=== PATIENT | male | born 1960 | race African-American/Black ===

== ENCOUNTER 2018-01-27 20:21 | Emergency (ER) | payer MEDICAID, MEDICARE ==
[~2018-01-27] VITALS: Ht 172.7 cm; Wt 68.9 kg
[~2018-01-27 20:21] MED LIST: ALPR0.5T PO; VIC
[2018-01-28] MEDS ORDERED: SODIUM CHLORIDE 0.9% 1,000 ML IV ONE (00:23)
[2018-01-28] MEDS ORDERED: ONDANSETRON HCL 4MG/2ML INJ IV STA (00:23)
[2018-01-28] MEDS ORDERED: MORPHINE SULFATE 4 MG/ML CPJ (NOT FOR IM USE) IV STA (00:23)
[2018-01-28] MEDS ORDERED: PANTOPRAZOLE SODIUM 40 MG/VIAL IV ONE (00:30)
[2018-01-28] MEDS ORDERED: MORPHINE SULFATE 2 MG/ML CPJ (NOT FOR IM USE) IV SCH (00:50)
[2018-01-28 00:56] LABS: BASOPHILS % 0.7 % (0.0-2.0); EOSINOPHILS % 1.4 % (0.0-5.0); HEMATOCRIT. 42.8 % (42.0-52.0); HEMOGLOBIN. 14.4 g/dL (14.0-18.0); LYMPHOCYTES % 38.6 % (20.0-50.0); MEAN CORPUSCULAR HEMOGLOBIN 31.2 pg (28.0-32.0); MEAN CORPUSCULAR VOLUME 92.7 fL (80.0-94.0); MEAN PLATELET VOLUME 8.8 fl (7.4-10.4); NEUTROPHILS % 49.3 % (40.0-76.0); PLATELET 218 x1000/uL (130-400); RED BLOOD CELL COUNT 4.61 mill/uL (4.7-6.1); RED CELL DISTRIBUTION WIDTH 14.7 % (11.6-14.6)
[2018-01-28 01:02] LABS: CHLORIDE 108 mEq/L (98-107); INR 1.1; PROTHROMBIN TIME 10.6 sec (9.1-11.1)
[2018-01-28 01:09] LABS: ETHANOL BLOOD < 10 mg/dL
[2018-01-28 01:11] LABS: CLARITY URINE CLEAR (CLEAR); COLOR URINE YELLOW (YELLOW); KETONES URINE TRACE (NEGATIVE); LEUKOCYTE ESTERASE URINE TRACE (NEGATIVE); NITRITE URINE NEGATIVE (NEGATIVE); OCCULT BLOOD URINE NEGATIVE (NEGATIVE); PH URINE 5.5 (4.5-8.0); PROTEIN URINE NEGATIVE (NEGATIVE); SPECIFIC GRAVITY URINE 1.029 (1.005-1.030); UROBILINOGEN URINE 0.2 E.U./dL (0.2-1.0)
[2018-01-28 01:37] LABS: *AMPHETAMINES SCREEN URINE NEGATIVE (NEGATIVE); CANNABINOID URINE SCREEN PRESUMTIVE POSITIVE (NEGATIVE); METHADONE URINE SCREEN NEGATIVE (NEGATIVE); OPIATES URINE SCREEN NEGATIVE (NEGATIVE); PHENCYCLIDINE URINE SCREEN NEGATIVE (NEGATIVE)
[2018-01-28 01:38] LABS: *BARBITURATES SCREEN URINE NEGATIVE (NEGATIVE); *BENZODIAZEPINES SCREEN URINE NEGATIVE (NEGATIVE); *COCAINE SCREEN URINE PRESUMTIVE POSITIVE (NEGATIVE)
[2018-01-28] MEDS ORDERED: IOHEXOL-300 100 ML BOTTLE ONE (03:29)
[2018-01-28 03:58] VITALS: BP 117/76
== END 2018-01-28 04:04 | disposition home or self-care (01) ==
LOC: ER 20:21
DX: R10.32 Left lower quadrant pain (principal); R10.12 Left upper quadrant pain; I10 Essential (primary) hypertension; K21.9 Gastro-esophageal reflux disease without esophagitis; R11.10 Vomiting, unspecified
CPT/HCPCS: 36415; 74177; 80053; 80305; 81003; 83690; 85025; 85610; 96361; 96374; 96375; 99284; C9113; G0482; J2270; J2405; J7030; Q9967

== ENCOUNTER 2019-01-17 07:12 | Emergency (ER) | payer MEDICARE ==
[~2019-01-17] VITALS: Ht 172.7 cm; Wt 73.0 kg
[2019-01-17] MEDS ORDERED: ACETAMINOPHEN WITH CODEINE 300/30MG TABLET PO STA (08:06)
[2019-01-17] MEDS ORDERED: ASPIRIN 81MG TABLET PO ONE (08:15)
[2019-01-17] MEDS ORDERED: NITROGLYCERIN 0.4MG TABLET SL SL PRN (08:15)
[2019-01-17 08:19] LABS: BASOPHILS % 0.4 % (0.0-2.0); EOSINOPHILS % 1.3 % (0.0-5.0); HEMATOCRIT. 42.6 % (42.0-52.0); HEMOGLOBIN. 14.4 g/dL (14.0-18.0); LYMPHOCYTES % 24.6 % (20.0-50.0); MEAN CORPUSCULAR HEMOGLOBIN 31.4 pg (28.0-32.0); MEAN CORPUSCULAR VOLUME 92.8 fL (80.0-94.0); MEAN PLATELET VOLUME 8.5 fl (7.4-10.4); MONOCYTES % 7.8 % (2.0-8.0); NEUTROPHILS % 65.9 % (40.0-76.0); PLATELET 180 x1000/uL (130-400); RED BLOOD CELL COUNT 4.59 mill/uL (4.7-6.1); RED CELL DISTRIBUTION WIDTH 14.2 % (11.6-14.6)
[2019-01-17 08:26] LABS: CHLORIDE 108 mEq/L (98-107)
[2019-01-17 12:55] VITALS: BP 131/80
== END 2019-01-17 13:29 | disposition home or self-care (01) ==
LOC: ER 07:12 → SUPCPDRO 11:47 → ER 13:29 → CANBEDREQ 14:40
DX: I20.0 Unstable angina (principal); E86.0 Dehydration; I10 Essential (primary) hypertension; F41.9 Anxiety disorder, unspecified; F10.10 Alcohol abuse, uncomplicated; Y90.9 Presence of alcohol in blood, level not specified; F17.210 Nicotine dependence, cigarettes, uncomplicated; Z95.0 Presence of cardiac pacemaker; Z87.828 Personal history of other (healed) physical injury and trauma; Z71.6 Tobacco abuse counseling
CPT/HCPCS: 36415; 71045; 80053; 83880; 84484; 85025; 93005; 99284; 99406; Z7610

== ENCOUNTER 2020-03-14 12:27 | Emergency (ER) | payer MEDICAID, MEDICARE ==
[~2020-03-14] VITALS: Ht 172.7 cm; Wt 70.0 kg
[2020-03-14 12:30] VITALS: BP 124/89
[2020-03-14] MEDS ORDERED: ACETAMINOPHEN 500MG TABLET PO ONE (13:15)
[2020-03-14 14:23] LABS: BASOPHILS % 0.5 % (0.0-2.0); EOSINOPHILS % 1.8 % (0.0-5.0); HEMATOCRIT. 37.8 % (42.0-52.0); HEMOGLOBIN. 12.6 g/dL (14.0-18.0); LYMPHOCYTES % 24.2 % (20.0-50.0); MEAN CORPUSCULAR VOLUME 93.2 fL (80.0-94.0); MEAN PLATELET VOLUME 8.2 fl (7.4-10.4); MONOCYTES % 7.3 % (2.0-8.0); NEUTROPHILS % 66.2 % (40.0-76.0); PLATELET 197 x1000/uL (130-400); RED BLOOD CELL COUNT 4.05 mill/uL (4.7-6.1); RED CELL DISTRIBUTION WIDTH 14.5 % (11.6-14.6)
[2020-03-14 14:28] LABS: CHLORIDE 111 mEq/L (98-107)
== END 2020-03-14 15:22 | disposition home or self-care (01) ==
LOC: ER 12:34
DX: S20.20XA Contusion of thorax, unspecified, initial encounter (principal); R42 Dizziness and giddiness; I10 Essential (primary) hypertension; F41.9 Anxiety disorder, unspecified; Z95.0 Presence of cardiac pacemaker; W19.XXXA Unspecified fall, initial encounter; Y93.89 Activity, other specified; Y92.89 Other specified places as the place of occurrence of the external cause
CPT/HCPCS: 36415; 71101; 80053; 84484; 85025; 93005; 99285

== ENCOUNTER 2020-05-13 15:34 | Emergency (ER) | payer MEDICAID ==
[~2020-05-13] VITALS: Ht 172.7 cm; Wt 75.0 kg
[2020-05-13 16:40] LABS: BASOPHILS % 0.3 % (0.0-2.0); EOSINOPHILS % 1.9 % (0.0-5.0); HEMATOCRIT. 42.1 % (42.0-52.0); HEMOGLOBIN. 13.9 g/dL (14.0-18.0); MEAN CORPUSCULAR HEMOGLOBIN 30.6 pg (28.0-32.0); MEAN CORPUSCULAR VOLUME 92.6 fL (80.0-94.0); MEAN PLATELET VOLUME 9.1 fl (7.4-10.4); MONOCYTES % 7.8 % (2.0-8.0); PLATELET 160 x1000/uL (130-400); RED BLOOD CELL COUNT 4.54 mill/uL (4.7-6.1); RED CELL DISTRIBUTION WIDTH 14.6 % (11.6-14.6)
[2020-05-13 16:47] LABS: CHLORIDE 110 mEq/L (98-107)
[2020-05-13 20:30] VITALS: BP 130/90
[2020-05-13] MEDS ORDERED: METH-653 MT (20:30)
== END 2020-05-13 20:55 | disposition home or self-care (01) ==
LOC: ER 15:34
DX: S46.912A Strain of unspecified muscle, fascia and tendon at shoulder and upper arm level, left arm, initial encounter (principal); I10 Essential (primary) hypertension; X58.XXXA Exposure to other specified factors, initial encounter; Y93.89 Activity, other specified; Y92.89 Other specified places as the place of occurrence of the external cause; Y99.8 Other external cause status
CPT/HCPCS: 36415; 71045; 80053; 83690; 83880; 84484; 85025; 93005; 99285; Z7610

== ENCOUNTER 2021-10-18 08:34 | Emergency (ER) | payer MEDICAID ==
[~2021-10-18] VITALS: Ht 177.8 cm; Wt 62.6 kg
[~2021-10-18 08:34] MED LIST changes: +METH-653 MT
[2021-10-18] MEDS ORDERED: TIZA-204 PO (09:01)
[2021-10-18] MEDS ORDERED: TRAZ-251 PO (09:05)
[2021-10-18] MEDS ORDERED: ATOR-2 PO (09:05)
[2021-10-18] MEDS ORDERED: GABA-532 PO (09:05)
[2021-10-18] MEDS ORDERED: AMOX-494 MT (09:05)
[2021-10-18 09:50] LABS: BASOPHILS % 0.8 % (0.0-2.0); EOSINOPHILS % 0.9 % (0.0-5.0); HEMOGLOBIN. 13.9 g/dL (14.0-18.0); LYMPHOCYTES % 35.1 % (20.0-50.0); MEAN CORPUSCULAR HEMOGLOBIN 31.2 pg (28.0-32.0); MEAN CORPUSCULAR VOLUME 93.9 fL (80.0-94.0); MEAN PLATELET VOLUME 8.2 fl (7.4-10.4); MONOCYTES % 9.6 % (2.0-8.0); NEUTROPHILS % 53.6 % (40.0-76.0); PLATELET 153 x1000/uL (130-400); RED BLOOD CELL COUNT 4.47 mill/uL (4.7-6.1); RED CELL DISTRIBUTION WIDTH 15.5 % (11.6-14.6)
[2021-10-18 09:58] LABS: CHLORIDE 109 mEq/L (98-107)
[2021-10-18 10:06] LABS: ETHANOL BLOOD < 10 mg/dL
[2021-10-18 10:20] LABS: *AMPHETAMINES SCREEN URINE NEGATIVE (NEGATIVE); *BARBITURATES SCREEN URINE NEGATIVE (NEGATIVE); *BENZODIAZEPINES SCREEN URINE NEGATIVE (NEGATIVE); *COCAINE SCREEN URINE PRESUMTIVE POSITIVE (NEGATIVE); CANNABINOID URINE SCREEN PRESUMTIVE POSITIVE (NEGATIVE); METHADONE URINE SCREEN NEGATIVE (NEGATIVE); OPIATES URINE SCREEN NEGATIVE (NEGATIVE); PHENCYCLIDINE URINE SCREEN NEGATIVE (NEGATIVE)
[2021-10-18] MEDS: ASPIRIN 81MG TABLET PO NR (11:49)
[2021-10-18] MEDS: LORAZEPAM 1MG TABLET PO NR (11:49)
[2021-10-18] MEDS ORDERED: ASPI-1497 MT (12:20)
[2021-10-18 12:46] VITALS: BP 152/74
== END 2021-10-18 12:47 | disposition home or self-care (01) ==
LOC: ER 08:34
DX: F14.10 Cocaine abuse, uncomplicated (principal); R25.3 Fasciculation; R94.31 Abnormal electrocardiogram [ECG] [EKG]; F41.9 Anxiety disorder, unspecified; E78.00 Pure hypercholesterolemia, unspecified; I10 Essential (primary) hypertension; I25.2 Old myocardial infarction; F12.10 Cannabis abuse, uncomplicated; F17.210 Nicotine dependence, cigarettes, uncomplicated; Z87.828 Personal history of other (healed) physical injury and trauma; Z95.0 Presence of cardiac pacemaker; Z98.890 Other specified postprocedural states; Z79.82 Long term (current) use of aspirin
CPT/HCPCS: 36415; 71045; 80053; 80305; 80320; 83690; 83880; 84484; 85025; 93005; 99285; Z7610; G0480

== ENCOUNTER 2023-08-02 09:17 | Emergency (ER) | payer MEDICAID ==
[~2023-08-02] VITALS: Ht 172.7 cm; Wt 68.0 kg
[~2023-08-02 09:17] MED LIST changes: +ALBU18HF2 IH; -ALPR0.5T PO; +ASPI-1497 MT; +ATOR20TA PO; +DICL100G58 TP; +GABA-532 PO; -METH-653 MT; +OMEP20CA14 PO; +TIZA-204 PO; -VIC
[2023-08-02 09:24] VITALS: O2SAT 100
[2023-08-02] MEDS: TRAMADOL 50MG TABLET PO NR (10:28)
[2023-08-02] MEDS: IBUPROFEN 800MG TABLET PO NR (10:28)
[2023-08-02] MEDS ORDERED: DICL100G58 TP (10:55)
[2023-08-02] MEDS ORDERED: TRAM50TA3 MT ×2 (10:57→11:03)
[2023-08-02 11:14] VITALS: BP 139/90; PULSE 79; RESP 18; TEMP 98.2
== END 2023-08-02 11:16 | disposition home or self-care (01) ==
LOC: ER 09:17
DX: S80.02XA Contusion of left knee, initial encounter (principal); S16.1XXA Strain of muscle, fascia and tendon at neck level, initial encounter; I25.2 Old myocardial infarction; I10 Essential (primary) hypertension; Z98.890 Other specified postprocedural states; V19.3XXA Pedal cyclist (driver) (passenger) injured in unspecified nontraffic accident, initial encounter; Y93.89 Activity, other specified; Y92.89 Other specified places as the place of occurrence of the external cause; Y99.8 Other external cause status
CPT/HCPCS: 72040; 73562; 99284

== ENCOUNTER 2023-08-15 07:49 | Emergency (ER) | payer MEDICAID, OTHER ==
[~2023-08-15] VITALS: Ht 172.7 cm; Wt 66.0 kg
[~2023-08-15 07:49] MED LIST changes: +TRAM50TA3 MT
[2023-08-15 08:00] VITALS: O2SAT 100
[2023-08-15] MEDS: ACETAMINOPHEN 325MG TABLET PO NR (08:55)
[2023-08-15] MEDS ORDERED: TOPUD PO (09:29)
[2023-08-15 09:39] VITALS: BP 139/87; PULSE 80; RESP 18; TEMP 98.5
== END 2023-08-15 09:42 | disposition home or self-care (01) ==
LOC: ER 07:49
DX: M25.512 Pain in left shoulder (principal); Z79.899 Other long term (current) drug therapy; V89.9XXA Person injured in unspecified vehicle accident, initial encounter; Y93.89 Activity, other specified; Y92.89 Other specified places as the place of occurrence of the external cause; Y99.8 Other external cause status
CPT/HCPCS: 73030; 99283; A4565

== ENCOUNTER 2023-11-07 08:40 | Emergency (ER) | payer MEDICAID, OTHER ==
[~2023-11-07] VITALS: Ht 172.7 cm; Wt 72.5 kg
[~2023-11-07 08:40] MED LIST changes: +TOPUD PO
[2023-11-07 08:48] VITALS: O2SAT 100
[2023-11-07 11:21] VITALS: BP 111/61; PULSE 68; RESP 18; TEMP 36.44736; O2SAT 100
== END 2023-11-07 11:23 | disposition home or self-care (01) ==
LOC: ER 08:40
DX: S93.501A Unspecified sprain of right great toe, initial encounter (principal); F41.9 Anxiety disorder, unspecified; I25.2 Old myocardial infarction; I10 Essential (primary) hypertension; Z79.82 Long term (current) use of aspirin; Z79.899 Other long term (current) drug therapy; Z98.890 Other specified postprocedural states; X58.XXXA Exposure to other specified factors, initial encounter; Y93.89 Activity, other specified; Y92.89 Other specified places as the place of occurrence of the external cause; Y99.8 Other external cause status
CPT/HCPCS: 73660; 99283

== ENCOUNTER 2024-02-26 12:29 | Emergency (ER) | payer OTHER ==
[~2024-02-26] VITALS: Ht 172.7 cm; Wt 72.6 kg
[~2024-02-26 12:29] MED LIST changes: +GABA-1180 PO; -GABA-532 PO
[2024-02-26 12:31] VITALS: BP 139/91; PULSE 79; RESP 16; TEMP 98.2; O2SAT 99
== END 2024-02-26 13:40 | disposition left against medical advice (07) ==
LOC: ER 12:38
DX: R10.9 Unspecified abdominal pain (principal); Z53.21 Procedure and treatment not carried out due to patient leaving prior to being seen by health care provider
CPT/HCPCS: 93005

== ENCOUNTER 2024-04-15 23:18 | Inpatient (IN) | payer OTHER ==
[~2024-04-15] VITALS: Ht 172.7 cm; Wt 60.3 kg
[~2024-04-15 23:18] MED LIST changes: -TOPUD PO
[2024-04-15 23:36] VITALS: O2SAT 100
[2024-04-16] MEDS ORDERED: MORPHINE SULFATE 4 MG/ML INJ (FOR IV/IM USE) IV STA (01:43)
[2024-04-16 02:13] LABS: BASOPHILS % 0.5 % (0.0-2.0); EOSINOPHILS % 2.6 % (0.0-5.0); HEMATOCRIT. 40.7 % (42.0-52.0); HEMOGLOBIN. 13.8 g/dL (14.0-18.0); LYMPHOCYTES % 34.4 % (20.0-50.0); MEAN CORPUSCULAR HEMOGLOBIN 31.4 pg (28.0-32.0); MEAN CORPUSCULAR HGB CONC 33.9 g/dL (31.0-37.0); MEAN CORPUSCULAR VOLUME 92.4 fL (80.0-94.0); MEAN PLATELET VOLUME 8.1 fl (7.4-10.4); MONOCYTES % 7.2 % (2.0-8.0); NEUTROPHILS % 55.3 % (40.0-76.0); PLATELET 194 x1000/uL (130-400); RED CELL DISTRIBUTION WIDTH 14.1 % (11.6-14.6); WHITE BLOOD COUNT 7.1 x1000/uL (4.5-11.0)
[2024-04-16 02:38] LABS: CARBON DIOXIDE 27 mEq/L (21-32); CHLORIDE 107 mEq/L (98-107); POTASSIUM 3.5 mEq/L (3.5-5.1); SODIUM 145 mEq/L (136-145)
[2024-04-16 02:39] LABS: CALCIUM 8.8 mg/dL (8.7-10.4)
[2024-04-16 02:43] LABS: CREATININE 1.1 mg/dL (0.6-1.3)
[2024-04-16 02:44] LABS: GLUCOSE 88 mg/dL (70-105); TROPONIN I HIGH SENSITIVITY 5 ng/L (3.0-53); UREA NITROGEN BLOOD 13 mg/dL (9-23)
[2024-04-16 02:45] LABS: ALANINE AMINOTRANSFERASE 21 IU/L (10-49); ALBUMIN 4.1 g/dL (3.2-4.8); ASPARTATE AMINOTRANSFERASE 27 IU/L (<34)
[2024-04-16 02:46] LABS: BILIRUBIN DIRECT 0.1 mg/dL (<=3.0); BILIRUBIN TOTAL 0.5 mg/dL (0.1-1.0); PROTEIN TOTAL 6.6 g/dL (6.0-8.3)
[2024-04-16] MEDS: MORPHINE SULFATE 4 MG/ML INJ (FOR IV/IM USE) IV NR (03:49)
[2024-04-16] MEDS: ONDANSETRON HCL 4MG/2ML INJ IV NR (03:49)
[2024-04-16] MEDS: ASPIRIN 81MG TABLET PO NR ×2 (03:49→05:24)
[2024-04-16] MEDS: ASPIRIN 81MG TABLET PO ONE (03:50)
[2024-04-16] MEDS: ONDANSETRON HCL 4MG/2ML INJ IV STA (03:50)
[2024-04-16 04:02] LABS: TROPONIN I HIGH SENSITIVITY < 4 ng/L (3.0-53)
[2024-04-16] MEDS ORDERED: MAGNESIUM/ALUMINUM HYDROXIDE/SIMETHICONE 30ML UDC PO PRN (05:00)
[2024-04-16] MEDS ORDERED: GUAIFENESIN 200MG/10ML SUGAR FREE UDC PO PRN (05:00)
[2024-04-16] MEDS ORDERED: ONDANSETRON HCL 4MG/2ML INJ IV PRN (05:00)
[2024-04-16] MEDS ORDERED: DOCUSATE SODIUM 100MG CAPSULE PO PRN (05:00)
[2024-04-16] MEDS ORDERED: CLONIDINE 0.1MG TABLET PO PRN (05:00)
[2024-04-16] MEDS ORDERED: ACETAMINOPHEN 325MG TABLET PO PRN ×2 (05:00)
[2024-04-16] MEDS ORDERED: NA PHOS,M-B/NA PHOS,DI-BA ENEMA 118ML PR PRN (05:00)
[2024-04-16] MEDS ORDERED: IPRATROPIUM/ALBUTEROL 0.5-3(2.5)MG/3ML NEB HHN PRN (05:00)
[2024-04-16] MEDS ORDERED: NITROGLYCERIN 0.4MG TABLET SL SL PRN (05:15)
[2024-04-16] MEDS ORDERED: TRAMADOL 50MG TABLET PO PRN (05:15)
[2024-04-16 07:09] LABS: CREATINE KINASE 303 IU/L (46-171)
[2024-04-16 07:11] LABS: TROPONIN I HIGH SENSITIVITY < 4 ng/L (3.0-53)
[2024-04-16 08:00] VITALS: BP 96/71; PULSE 75; RESP 18; TEMP 36; O2SAT 97
[2024-04-16] MEDS: AMLODIPINE 2.5MG TABLET PO SCH (09:00)
[2024-04-16] MEDS: GABAPENTIN 300MG CAPSULE PO ONE (09:48)
[2024-04-16] MEDS: ASPIRIN 81MG EC TABLET PO SCH (09:48)
[2024-04-16] MEDS: ENOXAPARIN 40MG/0.4ML SYR SUBCUT SCH (09:49)
[2024-04-16] MEDS: PANTOPRAZOLE 40MG DR TABLET PO SCH (09:50)
[2024-04-16 12:00] VITALS: BP 91/62; PULSE 70; RESP 17; TEMP 36.4; O2SAT 98
[2024-04-16 12:14] LABS: CLARITY URINE CLEAR (CLEAR); COLOR URINE YELLOW (YELLOW); GLUCOSE URINE NEGATIVE (NEGATIVE); KETONES URINE NEGATIVE (NEGATIVE); LEUKOCYTE ESTERASE URINE 2+ (NEGATIVE); NITRITE URINE NEGATIVE (NEGATIVE); OCCULT BLOOD URINE NEGATIVE (NEGATIVE); PROTEIN URINE NEGATIVE (NEGATIVE); SPECIFIC GRAVITY URINE 1.025 (1.005-1.030)
[2024-04-16 12:25] LABS: *AMPHETAMINES SCREEN URINE NEGATIVE (NEGATIVE); *BARBITURATES SCREEN URINE NEGATIVE (NEGATIVE); *BENZODIAZEPINES SCREEN URINE NEGATIVE (NEGATIVE); *COCAINE SCREEN URINE PRESUMPTIVE POSITIVE (NEGATIVE); CANNABINOID URINE SCREEN PRESUMPTIVE POSITIVE (NEGATIVE); ECSTASY MDMA SCREEN URINE NEGATIVE (NEGATIVE); METHADONE URINE SCREEN NEGATIVE (NEGATIVE); OPIATES URINE SCREEN PRESUMPTIVE POSITIVE (NEGATIVE); PHENCYCLIDINE URINE SCREEN NEGATIVE (NEGATIVE)
[2024-04-16 12:26] VITALS: BP 91/62; PULSE 70; RESP 16; TEMP 36.5
[2024-04-16 13:00] LABS: BACTERIA URINE FEW; RBC URINE NONE SEEN /hpf (0-2); SQUAMOUS EPITHELIAL CELL URINE NONE SEEN /lpf (RARE/1+); WBC URINE 15-25 /hpf (0-2); YEAST URINE NONE SEEN
[2024-04-16 16:00] VITALS: BP 114/75; PULSE 78; RESP 17; TEMP 36.4; O2SAT 100
[2024-04-16 17:12] LABS: CREATINE KINASE 263 IU/L (46-171)
[2024-04-16 17:20] LABS: TROPONIN I HIGH SENSITIVITY < 4 ng/L (3.0-53)
[2024-04-16] MEDS: TAMSULOSIN HCL 0.4MG SR CAPSULE PO SCH (18:38)
[2024-04-16 20:00] VITALS: BP 109/60; PULSE 78; RESP 18; TEMP 37.2; O2SAT 96
[2024-04-16] MEDS: ATORVASTATIN CALCIUM 20MG TABLET PO SCH (20:21)
[2024-04-17] VITALS (7 sets, daily range): BP systolic 98–119; BP diastolic 51–75; PULSE 68–86; RESP 16–18; TEMP 36.1–37.2; O2SAT 97–100
[2024-04-17 07:05] LABS: BASOPHILS % 0.7 % (0.0-2.0); EOSINOPHILS % 2.4 % (0.0-5.0); HEMOGLOBIN. 13.8 g/dL (14.0-18.0); LYMPHOCYTES % 33.6 % (20.0-50.0); MEAN CORPUSCULAR HEMOGLOBIN 32.2 pg (28.0-32.0); MEAN CORPUSCULAR HGB CONC 33.6 g/dL (31.0-37.0); MEAN CORPUSCULAR VOLUME 95.6 fL (80.0-94.0); MEAN PLATELET VOLUME 8.7 fl (7.4-10.4); MONOCYTES % 8.2 % (2.0-8.0); NEUTROPHILS % 55.1 % (40.0-76.0); PLATELET 185 x1000/uL (130-400); RED BLOOD CELL COUNT 4.29 mill/uL (4.7-6.1); RED CELL DISTRIBUTION WIDTH 14.6 % (11.6-14.6); WHITE BLOOD COUNT 4.2 x1000/uL (4.5-11.0)
[2024-04-17 07:10] LABS: CARBON DIOXIDE 25 mEq/L (21-32); CHLORIDE 109 mEq/L (98-107); POTASSIUM 4.7 mEq/L (3.5-5.1); SODIUM 142 mEq/L (136-145)
[2024-04-17 07:11] LABS: CALCIUM 9.4 mg/dL (8.7-10.4)
[2024-04-17 07:15] LABS: CREATININE 0.9 mg/dL (0.6-1.3)
[2024-04-17 07:16] LABS: GLUCOSE 106 mg/dL (70-105); T4 FREE 1.14 ng/dL (0.89-1.76); THYROID STIMULATING HORMONE 1.06 uIU/mL (0.55-4.78); UREA NITROGEN BLOOD 15 mg/dL (9-23)
[2024-04-17] MEDS: CEFTRIAXONE 1GM/50ML 50 ML IV SCH (18:08)
[2024-04-17] MEDS: KETOROLAC 15MG/ML VIAL IV PRN (18:19)
[2024-04-17] MEDS ORDERED: METOPROLOL TARTRATE 25MG TABLET PO SCH (21:00)
[2024-04-17] MEDS: ATORVASTATIN CALCIUM 40MG TABLET PO SCH (21:59)
[2024-04-18] VITALS: BP 119/64; PULSE 68; RESP 19; TEMP 36.6; O2SAT 98
[2024-04-18 04:00] VITALS: BP 110/70; PULSE 68; RESP 17; TEMP 36.4; O2SAT 97
[2024-04-18 08:00] VITALS: BP 100/58; PULSE 62; RESP 18; TEMP 36.6; O2SAT 97
[2024-04-18 09:13] VITALS: PULSE 62
== END 2024-04-18 12:50 | disposition left against medical advice (07) | DRG 816 ==
LOC: ER 23:18 → 6WST 04-16 04:22 → EDBEDREQTM 04-16 05:48 → EDBEDREQ 04-16 05:48
PROVIDERS: ADMIT Internal Medicine; ATTEND Internal Medicine
DX: T40.5X1A Poisoning by cocaine, accidental (unintentional), initial encounter (principal); I50.23 Acute on chronic systolic (congestive) heart failure; I11.0 Hypertensive heart disease with heart failure; D64.9 Anemia, unspecified; I16.0 Hypertensive urgency; F14.10 Cocaine abuse, uncomplicated; F17.210 Nicotine dependence, cigarettes, uncomplicated; Z53.29 Procedure and treatment not carried out because of patient's decision for other reasons; N28.1 Cyst of kidney, acquired; R35.0 Frequency of micturition; N40.1 Benign prostatic hyperplasia with lower urinary tract symptoms; F41.9 Anxiety disorder, unspecified; R07.89 Other chest pain; F12.10 Cannabis abuse, uncomplicated; F11.10 Opioid abuse, uncomplicated; K86.9 Disease of pancreas, unspecified; I25.2 Old myocardial infarction; Z95.0 Presence of cardiac pacemaker; Z79.82 Long term (current) use of aspirin; Z79.899 Other long term (current) drug therapy
CPT/HCPCS: 36415; 71045; 74018; 76700; 80048; 80076; 80305; 81003; 82270; 82550; 83880; 84153; 84439; 84443; 84484; 85025; 85379; 87015; 87045; 87177; 87209; 87427; 87449; 87493; 89055; 93005; 99285; C1893; J0696; J1650; J1885; J2270; J2405

== ENCOUNTER 2024-04-23 07:26 | Emergency (ER) | payer OTHER ==
[~2024-04-23] VITALS: Ht 167.6 cm; Wt 65.0 kg
[2024-04-23 07:42] VITALS: O2SAT 99
[2024-04-23 09:08] LABS: BASOPHILS % 0.6 % (0.0-2.0); EOSINOPHILS % 1.7 % (0.0-5.0); HEMOGLOBIN. 13.9 g/dL (14.0-18.0); MEAN CORPUSCULAR HGB CONC 33.8 g/dL (31.0-37.0); MEAN CORPUSCULAR VOLUME 94.6 fL (80.0-94.0); MEAN PLATELET VOLUME 8.1 fl (7.4-10.4); MONOCYTES % 7.1 % (2.0-8.0); NEUTROPHILS % 68.6 % (40.0-76.0); PLATELET 208 x1000/uL (130-400); RED BLOOD CELL COUNT 4.33 mill/uL (4.7-6.1); RED CELL DISTRIBUTION WIDTH 14.2 % (11.6-14.6); WHITE BLOOD COUNT 6.4 x1000/uL (4.5-11.0)
[2024-04-23 09:15] LABS: CHLORIDE 105 mEq/L (98-107); POTASSIUM 4.1 mEq/L (3.5-5.1); SODIUM 140 mEq/L (136-145)
[2024-04-23 09:16] LABS: CALCIUM 8.9 mg/dL (8.7-10.4); CARBON DIOXIDE 28 mEq/L (21-32)
[2024-04-23 09:21] LABS: CREATININE 0.7 mg/dL (0.6-1.3); GLUCOSE 96 mg/dL (70-105); UREA NITROGEN BLOOD 6 mg/dL (9-23)
[2024-04-23 09:23] LABS: TROPONIN I HIGH SENSITIVITY < 4 ng/L (3.0-53)
[2024-04-23 13:22] VITALS: BP 114/57; PULSE 80; RESP 17; TEMP 36.9; O2SAT 100
== END 2024-04-23 13:22 | disposition short-term general hospital (02) ==
LOC: ER 07:26 → EDBEDREQ 12:50 → EDBEDREQTM 12:50 → ER 13:22
DX: R07.89 Other chest pain (principal); F14.10 Cocaine abuse, uncomplicated; F12.10 Cannabis abuse, uncomplicated; I25.2 Old myocardial infarction; I10 Essential (primary) hypertension; E11.9 Type 2 diabetes mellitus without complications; F41.9 Anxiety disorder, unspecified; Z79.82 Long term (current) use of aspirin; Z79.899 Other long term (current) drug therapy; Z98.890 Other specified postprocedural states
CPT/HCPCS: 80048; 85025; 84484; 36415; 71045; 74018; 93005; 99291; Z7610

== ENCOUNTER 2024-04-30 10:38 | Emergency (ER) | payer OTHER ==
[~2024-04-30] VITALS: Ht 172.7 cm; Wt 61.6 kg
[2024-04-30 11:02] VITALS: O2SAT 98
[2024-04-30 11:35] LABS: BASOPHILS % 0.8 % (0.0-2.0); EOSINOPHILS % 2.8 % (0.0-5.0); HEMATOCRIT. 40.2 % (42.0-52.0); HEMOGLOBIN. 13.3 g/dL (14.0-18.0); LYMPHOCYTES % 34.8 % (20.0-50.0); MEAN CORPUSCULAR HEMOGLOBIN 31.4 pg (28.0-32.0); MEAN CORPUSCULAR VOLUME 95.1 fL (80.0-94.0); MEAN PLATELET VOLUME 7.7 fl (7.4-10.4); MONOCYTES % 10.2 % (2.0-8.0); NEUTROPHILS % 51.4 % (40.0-76.0); PLATELET 179 x1000/uL (130-400); RED BLOOD CELL COUNT 4.23 mill/uL (4.7-6.1); RED CELL DISTRIBUTION WIDTH 14.2 % (11.6-14.6); WHITE BLOOD COUNT 4.6 x1000/uL (4.5-11.0)
[2024-04-30 11:49] LABS: CHLORIDE 104 mEq/L (98-107); POTASSIUM 4.7 mEq/L (3.5-5.1); PROTHROMBIN TIME 10.9 sec (9.6-11.0); SODIUM 139 mEq/L (136-145)
[2024-04-30 11:50] LABS: CALCIUM 9.2 mg/dL (8.7-10.4); CARBON DIOXIDE 25 mEq/L (21-32)
[2024-04-30 11:55] LABS: CREATININE 1.2 mg/dL (0.6-1.3); GLUCOSE 114 mg/dL (70-105); UREA NITROGEN BLOOD 14 mg/dL (9-23)
[2024-04-30 11:57] LABS: ALANINE AMINOTRANSFERASE 18 IU/L (10-49); ALBUMIN 4.1 g/dL (3.2-4.8); ASPARTATE AMINOTRANSFERASE 28 IU/L (<34); BILIRUBIN DIRECT 0.2 mg/dL (<=3.0); BILIRUBIN TOTAL 0.7 mg/dL (0.1-1.0)
[2024-04-30 12:01] LABS: ETHANOL BLOOD < 10 mg/dL (<10); TROPONIN I HIGH SENSITIVITY < 4 ng/L (3.0-53)
[2024-04-30] MEDS: MAGNESIUM/ALUMINUM HYDROXIDE/SIMETHICONE 30ML UDC PO STA (13:51)
[2024-04-30] MEDS: HYDROCODONE/ACETAMINOPHEN 5/325MG TABLET PO STA (13:52)
[2024-04-30] MEDS: ONDANSETRON 4MG ODT PO STA (13:54)
[2024-04-30] MEDS: DICYCLOMINE 10 MG/5 ML ORAL SYR PO STA (14:05)
[2024-04-30 15:47] LABS: CLARITY URINE CLEAR (CLEAR); COLOR URINE YELLOW (YELLOW); GLUCOSE URINE NEGATIVE (NEGATIVE); KETONES URINE NEGATIVE (NEGATIVE); LEUKOCYTE ESTERASE URINE 3+ (NEGATIVE); NITRITE URINE NEGATIVE (NEGATIVE); OCCULT BLOOD URINE NEGATIVE (NEGATIVE); PH URINE 7.5 (4.5-8.0); PROTEIN URINE NEGATIVE (NEGATIVE); SPECIFIC GRAVITY URINE 1.027 (1.005-1.030)
[2024-04-30 15:58] LABS: *AMPHETAMINES SCREEN URINE NEGATIVE (NEGATIVE); *BARBITURATES SCREEN URINE NEGATIVE (NEGATIVE); *BENZODIAZEPINES SCREEN URINE NEGATIVE (NEGATIVE); *COCAINE SCREEN URINE PRESUMPTIVE POSITIVE (NEGATIVE); METHADONE URINE SCREEN NEGATIVE (NEGATIVE)
[2024-04-30 15:59] LABS: CANNABINOID URINE SCREEN PRESUMPTIVE POSITIVE (NEGATIVE); ECSTASY MDMA SCREEN URINE NEGATIVE (NEGATIVE); OPIATES URINE SCREEN NEGATIVE (NEGATIVE); PHENCYCLIDINE URINE SCREEN NEGATIVE (NEGATIVE)
[2024-04-30] MEDS: MAGNESIUM/ALUMINUM HYDROXIDE/SIMETHICONE 30ML UDC PO ONE (16:02)
[2024-04-30 16:04] LABS: WBC URINE 15-25 /hpf (0-2)
[2024-04-30 16:05] LABS: BACTERIA URINE TRACE; RBC URINE 0-2 /hpf (0-2); SQUAMOUS EPITHELIAL CELL URINE FEW /lpf (RARE/1+); YEAST URINE NONE SEEN
[2024-04-30 19:30] VITALS: BP 126/74; PULSE 70; RESP 18; TEMP 36.8; O2SAT 99
== END 2024-04-30 19:47 | disposition short-term general hospital (02) ==
LOC: ER 10:43
DX: R07.89 Other chest pain (principal); R10.9 Unspecified abdominal pain; I10 Essential (primary) hypertension; E11.9 Type 2 diabetes mellitus without complications; I25.2 Old myocardial infarction; Z98.890 Other specified postprocedural states; Z79.82 Long term (current) use of aspirin; Z95.0 Presence of cardiac pacemaker; Z79.899 Other long term (current) drug therapy
CPT/HCPCS: 80076; 80305; 80048; 81003; 80320; 82962; 83690; 85025; 85610; 87086; 84484; 36415; 71045; 74176; 93005; 99285; Q0162; G0480

== ENCOUNTER 2024-05-08 15:44 | Emergency (ER) | payer OTHER ==
[~2024-05-08] VITALS: Ht 180.3 cm; Wt 80.0 kg
[2024-05-08 15:53] VITALS: O2SAT 100
[2024-05-08 18:24] LABS: BASOPHILS % 0.9 % (0.0-2.0); EOSINOPHILS % 2.5 % (0.0-5.0); HEMATOCRIT. 40.2 % (42.0-52.0); HEMOGLOBIN. 12.9 g/dL (14.0-18.0); LYMPHOCYTES % 41.8 % (20.0-50.0); MEAN CORPUSCULAR HEMOGLOBIN 30.9 pg (28.0-32.0); MEAN CORPUSCULAR HGB CONC 31.9 g/dL (31.0-37.0); MEAN CORPUSCULAR VOLUME 96.6 fL (80.0-94.0); MEAN PLATELET VOLUME 8.4 fl (7.4-10.4); MONOCYTES % 7.9 % (2.0-8.0); NEUTROPHILS % 46.9 % (40.0-76.0); PLATELET 189 x1000/uL (130-400); RED BLOOD CELL COUNT 4.16 mill/uL (4.7-6.1); RED CELL DISTRIBUTION WIDTH 14.5 % (11.6-14.6); WHITE BLOOD COUNT 5.2 x1000/uL (4.5-11.0)
[2024-05-08 18:29] LABS: CHLORIDE 110 mEq/L (98-107); POTASSIUM 4.1 mEq/L (3.5-5.1); SODIUM 143 mEq/L (136-145)
[2024-05-08 18:30] LABS: CARBON DIOXIDE 27 mEq/L (21-32)
[2024-05-08 18:31] LABS: CALCIUM 8.8 mg/dL (8.7-10.4)
[2024-05-08 18:35] LABS: CREATININE 0.8 mg/dL (0.6-1.3); GLUCOSE 89 mg/dL (70-105)
[2024-05-08 18:36] LABS: UREA NITROGEN BLOOD 10 mg/dL (9-23)
[2024-05-08 18:37] LABS: ALANINE AMINOTRANSFERASE 19 IU/L (10-49); ALBUMIN 3.9 g/dL (3.2-4.8); ASPARTATE AMINOTRANSFERASE 28 IU/L (<34)
[2024-05-08 18:38] LABS: BILIRUBIN DIRECT 0.1 mg/dL (<=3.0); BILIRUBIN TOTAL 0.5 mg/dL (0.1-1.0); PROTEIN TOTAL 6.8 g/dL (6.0-8.3)
[2024-05-08] MEDS ORDERED: DICYCLOMINE 10 MG/5 ML ORAL SYR PO STA (18:52)
[2024-05-08] MEDS: MAGNESIUM/ALUMINUM HYDROXIDE/SIMETHICONE 30ML UDC PO STA (19:38)
[2024-05-08] MEDS: DICYCLOMINE HCL 10MG CAPSULE PO NR (19:38)
[2024-05-08] MEDS: ONDANSETRON 4MG ODT PO STA (19:39)
[2024-05-08] MEDS ORDERED: FAMO-135 MT (19:50)
[2024-05-08] MEDS ORDERED: METO-293 MT (19:50)
[2024-05-08] MEDS ORDERED: ONDA-239 PO (19:50)
[2024-05-08 20:30] VITALS: BP 133/86; PULSE 66; RESP 20; TEMP 36.5
== END 2024-05-08 20:41 | disposition home or self-care (01) ==
LOC: ER 15:44
DX: K56.699 Other intestinal obstruction unspecified as to partial versus complete obstruction (principal); F12.10 Cannabis abuse, uncomplicated; E11.9 Type 2 diabetes mellitus without complications; F41.9 Anxiety disorder, unspecified; I25.2 Old myocardial infarction; I10 Essential (primary) hypertension; Z79.899 Other long term (current) drug therapy; Z79.82 Long term (current) use of aspirin; Z98.890 Other specified postprocedural states
CPT/HCPCS: 99284; 80076; 80048; 83690; 85025; 36415; 74018; Q0162

== ENCOUNTER 2024-07-26 20:03 | Emergency (ER) | payer OTHER ==
[~2024-07-26] VITALS: Ht 172.7 cm; Wt 60.0 kg
[~2024-07-26 20:03] MED LIST changes: +FAMO-135 MT; +METO-293 MT; +ONDA-239 PO
[2024-07-26 20:17] VITALS: O2SAT 100
[2024-07-26 21:06] LABS: CHLORIDE 106 mEq/L (98-107); POTASSIUM 3.7 mEq/L (3.5-5.1); SODIUM 141 mEq/L (136-145)
[2024-07-26 21:07] LABS: BASOPHILS % 0.3 % (0.0-2.0); CALCIUM 9.2 mg/dL (8.7-10.4); CARBON DIOXIDE 26 mEq/L (21-32); EOSINOPHILS % 1.5 % (0.0-5.0); HEMATOCRIT. 35.2 % (42.0-52.0); HEMOGLOBIN. 11.7 g/dL (14.0-18.0); LYMPHOCYTES % 32.7 % (20.0-50.0); MEAN CORPUSCULAR HEMOGLOBIN 31.1 pg (28.0-32.0); MEAN CORPUSCULAR HGB CONC 33.2 g/dL (31.0-37.0); MEAN CORPUSCULAR VOLUME 93.6 fL (80.0-94.0); MONOCYTES % 7.3 % (2.0-8.0); NEUTROPHILS % 58.2 % (40.0-76.0); PLATELET 208 x1000/uL (130-400); RED BLOOD CELL COUNT 3.77 mill/uL (4.7-6.1); RED CELL DISTRIBUTION WIDTH 16.1 % (11.6-14.6); WHITE BLOOD COUNT 5.6 x1000/uL (4.5-11.0)
[2024-07-26 21:12] LABS: CREATININE 0.8 mg/dL (0.6-1.3); GLUCOSE 179 mg/dL (70-105); UREA NITROGEN BLOOD 10 mg/dL (9-23)
[2024-07-26 21:14] LABS: ALANINE AMINOTRANSFERASE 17 IU/L (10-49); ALBUMIN 4.2 g/dL (3.2-4.8); ASPARTATE AMINOTRANSFERASE 33 IU/L (<34); BILIRUBIN DIRECT 0.1 mg/dL (<=3.0); BILIRUBIN TOTAL 0.5 mg/dL (0.1-1.0); PROTEIN TOTAL 6.7 g/dL (6.0-8.3)
[2024-07-26] MEDS: KETOROLAC 30MG/ML VIAL IM SCH (21:49)
[2024-07-26 22:32] LABS: CLARITY URINE CLEAR (CLEAR); COLOR URINE YELLOW (YELLOW); GLUCOSE URINE NEGATIVE (NEGATIVE); KETONES URINE NEGATIVE (NEGATIVE); OCCULT BLOOD URINE NEGATIVE (NEGATIVE); PROTEIN URINE NEGATIVE (NEGATIVE)
[2024-07-26 22:33] LABS: LEUKOCYTE ESTERASE URINE NEGATIVE (NEGATIVE); NITRITE URINE NEGATIVE (NEGATIVE); UROBILINOGEN URINE 0.2 E.U./dL (0.2-1.0)
[2024-07-26] MEDS ORDERED: IMOD MT (23:48)
[2024-07-26] MEDS: SODIUM CHLORIDE 0.9% 1,000 ML IV ONE (23:50)
[2024-07-27 01:13] VITALS: BP 107/65; PULSE 65; RESP 16; TEMP 36.9; O2SAT 100
== END 2024-07-27 01:18 | disposition home or self-care (01) ==
LOC: ER 20:03
DX: R19.7 Diarrhea, unspecified (principal); F10.90 Alcohol use, unspecified, uncomplicated; F12.90 Cannabis use, unspecified, uncomplicated; F19.11 Other psychoactive substance abuse, in remission; Z55.6 Problems related to health literacy; Z59.00 Homelessness unspecified; Z79.82 Long term (current) use of aspirin; Z79.899 Other long term (current) drug therapy; Z95.0 Presence of cardiac pacemaker
CPT/HCPCS: 80076; 80048; 81003; 85025; 36415; 74176; 93005; 96360; 96372; 99285; J1885; J7030; Z7610

== ENCOUNTER 2024-08-05 23:36 | Emergency (ER) | payer OTHER ==
[~2024-08-05] VITALS: Ht 172.7 cm; Wt 60.0 kg
[~2024-08-05 23:36] MED LIST changes: +IMOD MT
[2024-08-06] VITALS: BP 132/90; TEMP 36.9; O2SAT 99
[2024-08-06 00:01] VITALS: PULSE 90; RESP 20; O2SAT 99
[2024-08-06 01:39] VITALS: TEMP 98.4
[2024-08-06] MEDS: ACETAMINOPHEN 325MG TABLET PO ONE (01:39)
[2024-08-06] MEDS ORDERED: ACET-2708 MT (01:45)
== END 2024-08-06 02:02 | disposition home or self-care (01) ==
LOC: ER 23:36
DX: M25.511 Pain in right shoulder (principal); M25.551 Pain in right hip; Z79.82 Long term (current) use of aspirin; Z79.899 Other long term (current) drug therapy; Z95.0 Presence of cardiac pacemaker; W18.39XA Other fall on same level, initial encounter; Y93.89 Activity, other specified; Y92.89 Other specified places as the place of occurrence of the external cause; Y99.8 Other external cause status
CPT/HCPCS: 73030; 73502; 99284

== ENCOUNTER 2024-08-06 01:59 | Emergency (ER) | payer OTHER ==
[~2024-08-06] VITALS: Ht 177.8 cm; Wt 60.0 kg
[~2024-08-06 01:59] MED LIST changes: +ACET-2708 MT
[2024-08-06 02:15] VITALS: O2SAT 100
[2024-08-06 03:06] VITALS: BP 129/80; PULSE 80; RESP 20; TEMP 36.8; O2SAT 100
== END 2024-08-06 03:15 | disposition home or self-care (01) ==
LOC: ER 01:59
DX: R10.9 Unspecified abdominal pain (principal); Z59.00 Homelessness unspecified; Z79.899 Other long term (current) drug therapy; Z98.890 Other specified postprocedural states
CPT/HCPCS: 99281; 99282

== ENCOUNTER 2024-08-08 07:56 | Emergency (ER) | payer OTHER ==
[~2024-08-08] VITALS: Ht 172.7 cm; Wt 73.9 kg
[2024-08-08 08:06] VITALS: O2SAT 99
[2024-08-08 09:08] LABS: BASOPHILS % 0.9 % (0.0-2.0); EOSINOPHILS % 2.7 % (0.0-5.0); HEMOGLOBIN. 12.3 g/dL (14.0-18.0); LYMPHOCYTES % 28.9 % (20.0-50.0); MEAN CORPUSCULAR HEMOGLOBIN 31.7 pg (28.0-32.0); MEAN CORPUSCULAR HGB CONC 34.2 g/dL (31.0-37.0); MEAN CORPUSCULAR VOLUME 92.7 fL (80.0-94.0); MEAN PLATELET VOLUME 7.6 fl (7.4-10.4); MONOCYTES % 7.9 % (2.0-8.0); NEUTROPHILS % 59.6 % (40.0-76.0); PLATELET 236 x1000/uL (130-400); RED BLOOD CELL COUNT 3.88 mill/uL (4.7-6.1); RED CELL DISTRIBUTION WIDTH 15.8 % (11.6-14.6); WHITE BLOOD COUNT 5.2 x1000/uL (4.5-11.0)
[2024-08-08 09:16] LABS: CARBON DIOXIDE 24 mEq/L (21-32); CHLORIDE 105 mEq/L (98-107); SODIUM 138 mEq/L (136-145)
[2024-08-08 09:17] LABS: CALCIUM 9.1 mg/dL (8.7-10.4)
[2024-08-08 09:21] LABS: CREATININE 0.9 mg/dL (0.6-1.3)
[2024-08-08 09:22] LABS: GLUCOSE 167 mg/dL (70-105); UREA NITROGEN BLOOD 8 mg/dL (9-23)
[2024-08-08 09:23] LABS: ALANINE AMINOTRANSFERASE 15 IU/L (10-49); ALBUMIN 4.2 g/dL (3.2-4.8); ASPARTATE AMINOTRANSFERASE 22 IU/L (<34)
[2024-08-08 09:24] LABS: BILIRUBIN DIRECT 0.2 mg/dL (<=3.0); BILIRUBIN TOTAL 0.5 mg/dL (0.1-1.0); PROTEIN TOTAL 6.7 g/dL (6.0-8.3)
[2024-08-08] MEDS: ACETAMINOPHEN 650MG/20.3ML UDC PO ONE (09:24)
[2024-08-08] MEDS ORDERED: ACET-2708 MT (11:00)
[2024-08-08 12:21] VITALS: BP 118/79; PULSE 81; RESP 17; TEMP 36.7; O2SAT 98
== END 2024-08-08 13:03 | disposition home or self-care (01) ==
LOC: ER 07:56
DX: G89.29 Other chronic pain (principal); M79.672 Pain in left foot; M79.671 Pain in right foot; R10.9 Unspecified abdominal pain; F41.9 Anxiety disorder, unspecified; Z59.01 Sheltered homelessness; Z76.5 Malingerer [conscious simulation]; Z79.82 Long term (current) use of aspirin; Z79.899 Other long term (current) drug therapy
CPT/HCPCS: 36415; 80048; 80076; 80320; 85025; 93005; 99284; G0480

== ENCOUNTER 2024-10-19 19:00 | Emergency (ER) | payer OTHER ==
[~2024-10-19] VITALS: Ht 174 cm; Wt 68.0 kg
[2024-10-19 19:04] VITALS: O2SAT 100
[2024-10-19 19:37] LABS: BASOPHILS % 0.6 % (0.0-2.0); EOSINOPHILS % 1.3 % (0.0-5.0); HEMATOCRIT. 45.9 % (42.0-52.0); HEMOGLOBIN. 15.1 g/dL (14.0-18.0); LYMPHOCYTES % 26.0 % (20.0-50.0); MEAN PLATELET VOLUME 7.8 fl (7.4-10.4); MONOCYTES % 9.0 % (2.0-8.0); NEUTROPHILS % 63.1 % (40.0-76.0); PLATELET 180 x1000/uL (130-400); RED BLOOD CELL COUNT 4.91 mill/uL (4.7-6.1); RED CELL DISTRIBUTION WIDTH 14.0 % (11.6-14.6)
[2024-10-19] MEDS: SODIUM CHLORIDE 0.9% 1,000 ML IV ONE (19:45)
[2024-10-19 19:48] LABS: INR 1.0
[2024-10-19 19:51] LABS: CREATININE 0.9 mg/dL (0.6-1.3)
[2024-10-19 19:52] LABS: TROPONIN I HIGH SENSITIVITY < 4 ng/L (3.0-53); UREA NITROGEN BLOOD 9 mg/dL (9-23)
[2024-10-19 19:53] LABS: ASPARTATE AMINOTRANSFERASE 30 IU/L (<34)
[2024-10-19 19:54] LABS: BILIRUBIN DIRECT 0.1 mg/dL (<=3.0); BILIRUBIN TOTAL 0.5 mg/dL (0.1-1.0); PROTEIN TOTAL 7.3 g/dL (6.0-8.3)
[2024-10-19] MEDS: ONDANSETRON HCL 4MG/2ML INJ IV ONE (19:57)
[2024-10-19] MEDS: MORPHINE SULFATE 4 MG/ML INJ (FOR IV/IM USE) IV ONE (19:58)
[2024-10-19 20:02] VITALS: TEMP 36.9
[2024-10-19 23:58] VITALS: BP 140/99; PULSE 63; RESP 19; O2SAT 96
== END 2024-10-20 00:07 | disposition short-term general hospital (02) ==
LOC: ER 19:19 → EDBEDREQTM 23:54 → EDBEDREQ 23:54 → EDBEDREQSVC 23:54 → ER 10-20 00:07 → CMPBEDREQ 10-20 09:11
DX: R10.84 Generalized abdominal pain (principal); R19.7 Diarrhea, unspecified; R06.02 Shortness of breath; I10 Essential (primary) hypertension; F41.9 Anxiety disorder, unspecified; I25.2 Old myocardial infarction; I25.10 Atherosclerotic heart disease of native coronary artery without angina pectoris; Z95.0 Presence of cardiac pacemaker; Z79.899 Other long term (current) drug therapy; Z79.82 Long term (current) use of aspirin
CPT/HCPCS: 80076; 80048; 83880; 83690; 85025; 85610; 85730; 84484; 36415; 71045; 74176; 93005; 96361; 96374; 96375; 99285; J2405; J2270; J7030; Z7610

== ENCOUNTER 2025-01-24 16:11 | Emergency (ER) | payer OTHER ==
[~2025-01-24] VITALS: Ht 172.7 cm; Wt 82.0 kg
[2025-01-24 16:30] VITALS: TEMP 36.9; O2SAT 100
[2025-01-24 16:58] LABS: BASOPHILS % 0.6 % (0.0-2.0); EOSINOPHILS % 1.8 % (0.0-5.0); HEMATOCRIT. 38.4 % (42.0-52.0); HEMOGLOBIN. 12.7 g/dL (14.0-18.0); LYMPHOCYTES % 19.2 % (20.0-50.0); MEAN PLATELET VOLUME 7.8 fl (7.4-10.4); MONOCYTES % 7.4 % (2.0-8.0); NEUTROPHILS % 71.0 % (40.0-76.0); PLATELET 194 x1000/uL (130-400); RED BLOOD CELL COUNT 4.07 mill/uL (4.7-6.1); RED CELL DISTRIBUTION WIDTH 14.2 % (11.6-14.6)
[2025-01-24 17:08] LABS: CREATININE 0.8 mg/dL (0.6-1.3)
[2025-01-24 17:09] LABS: UREA NITROGEN BLOOD 6 mg/dL (9-23)
[2025-01-24 18:31] LABS: PROTEIN TOTAL 7.0 g/dL (6.0-8.3)
[2025-01-24 18:32] LABS: ASPARTATE AMINOTRANSFERASE 24 IU/L (<34); BILIRUBIN DIRECT 0.1 mg/dL (<=3.0)
[2025-01-24 18:33] LABS: BILIRUBIN TOTAL 0.4 mg/dL (0.1-1.0)
[2025-01-24 20:18] LABS: CLARITY URINE CLEAR (CLEAR); COLOR URINE YELLOW (YELLOW); GLUCOSE URINE NEGATIVE (NEGATIVE); KETONES URINE NEGATIVE (NEGATIVE); LEUKOCYTE ESTERASE URINE NEGATIVE (NEGATIVE); NITRITE URINE NEGATIVE (NEGATIVE); OCCULT BLOOD URINE NEGATIVE (NEGATIVE); PH URINE 5.5 (4.5-8.0); PROTEIN URINE NEGATIVE (NEGATIVE); SPECIFIC GRAVITY URINE 1.013 (1.005-1.030); UROBILINOGEN URINE 1.0 E.U./dL (0.2-1.0)
[2025-01-24 20:35] LABS: *AMPHETAMINES SCREEN URINE NEGATIVE (NEGATIVE); *BARBITURATES SCREEN URINE NEGATIVE (NEGATIVE); *BENZODIAZEPINES SCREEN URINE NEGATIVE (NEGATIVE); *COCAINE SCREEN URINE PRESUMPTIVE POSITIVE (NEGATIVE); CANNABINOID URINE SCREEN PRESUMPTIVE POSITIVE (NEGATIVE); ECSTASY MDMA SCREEN URINE NEGATIVE (NEGATIVE); METHADONE URINE SCREEN NEGATIVE (NEGATIVE); OPIATES URINE SCREEN NEGATIVE (NEGATIVE); PHENCYCLIDINE URINE SCREEN NEGATIVE (NEGATIVE)
[2025-01-24] MEDS ORDERED: POLY17PO3 MT (20:43)
[2025-01-24] MEDS ORDERED: PSYL575P22 MT (20:43)
[2025-01-24 21:01] VITALS: BP 122/72; PULSE 76; RESP 16; O2SAT 100
== END 2025-01-24 21:08 | disposition home or self-care (01) ==
LOC: ER 16:11
DX: K59.00 Constipation, unspecified (principal); R32 Unspecified urinary incontinence; I10 Essential (primary) hypertension; I25.2 Old myocardial infarction; I25.10 Atherosclerotic heart disease of native coronary artery without angina pectoris; Z95.0 Presence of cardiac pacemaker; Z79.899 Other long term (current) drug therapy; Z79.82 Long term (current) use of aspirin; Z59.00 Homelessness unspecified
CPT/HCPCS: 36415; 74176; 80048; 80076; 80305; 80320; 81003; 85025; 99284; G0480

== ENCOUNTER 2025-02-09 08:54 | Emergency (ER) | payer OTHER ==
[~2025-02-09] VITALS: Ht 175.3 cm; Wt 64.0 kg
[~2025-02-09 08:54] MED LIST changes: +POLY17PO3 MT; +PSYL575P22 MT
[2025-02-09 09:23] VITALS: O2SAT 98
[2025-02-09 09:26] VITALS: BP 113/75; PULSE 76; RESP 18; TEMP 36.9; O2SAT 100
[2025-02-09 10:03] LABS: PLATELET 177 x1000/uL (130-400); RED BLOOD CELL COUNT 4.32 mill/uL (4.7-6.1); RED CELL DISTRIBUTION WIDTH 14.1 % (11.6-14.6)
[2025-02-09 10:44] LABS: CREATININE 1.0 mg/dL (0.6-1.3); UREA NITROGEN BLOOD 11 mg/dL (9-23)
[2025-02-09] MEDS ORDERED: IBUP-1455 MT (11:34)
[2025-02-09] MEDS ORDERED: LIDO-53 TP (11:34)
== END 2025-02-09 11:42 | disposition home or self-care (01) ==
LOC: ER 08:54
DX: R07.89 Other chest pain (principal); I10 Essential (primary) hypertension; F41.9 Anxiety disorder, unspecified; I25.10 Atherosclerotic heart disease of native coronary artery without angina pectoris; Z95.0 Presence of cardiac pacemaker; Z79.899 Other long term (current) drug therapy; Z79.82 Long term (current) use of aspirin; Z55.6 Problems related to health literacy; W01.0XXA Fall on same level from slipping, tripping and stumbling without subsequent striking against object, initial encounter; Y92.480 Sidewalk as the place of occurrence of the external cause; Y93.89 Activity, other specified; Y92.89 Other specified places as the place of occurrence of the external cause; Y99.8 Other external cause status
CPT/HCPCS: 36415; 71045; 71100; 80048; 85027; 93005; 99285